=== PATIENT | female | born 1995 | race African-American/Black ===

== ENCOUNTER 2018-09-09 15:07 | Emergency (ER) | payer OTHER ==
[~2018-09-09] VITALS: Ht 160 cm; Wt 58.6 kg
[2018-09-09 15:08] VITALS: BP 152/70
[2018-09-09] MEDS ORDERED: ONDA4TAB6 PO (16:03)
== END 2018-09-09 16:07 | disposition home or self-care (01) ==
LOC: M ED 15:07
DX: N93.8 Other specified abnormal uterine and vaginal bleeding (principal); R11.2 Nausea with vomiting, unspecified; Z87.891 Personal history of nicotine dependence

== ENCOUNTER 2018-10-13 11:02 | Emergency (ER) | payer OTHER ==
[~2018-10-13] VITALS: Ht 157.5 cm; Wt 59.3 kg
[2018-10-13 11:02] VITALS: BP 127/78
[~2018-10-13 11:02] MED LIST: ONDA4TAB6 PO
[2018-10-13] MEDS ORDERED: IBUP-1022 PO (13:52)
[2018-10-13] MEDS ORDERED: CYCL10TA PO (13:52)
== END 2018-10-13 13:58 | disposition home or self-care (01) ==
LOC: M ED 11:02
DX: S39.012A Strain of muscle, fascia and tendon of lower back, initial encounter (principal); S29.012A Strain of muscle and tendon of back wall of thorax, initial encounter; X50.0XXA Overexertion from strenuous movement or load, initial encounter; Y92.099 Unspecified place in other non-institutional residence as the place of occurrence of the external cause; Y93.9 Activity, unspecified; Y99.9 Unspecified external cause status; Z72.0 Tobacco use

== ENCOUNTER 2020-01-17 09:20 | Day surgery (SDC) | payer OTHER ==
[~2020-01-17 09:20] MED LIST changes: +CYCL-707 PO; +IBUP-1022 PO; +cefoTEtan INJ 2GM VIAL (S0074 PER 500MG) As Ordered ONE
[2020-01-17] MEDS ORDERED: cefoTEtan INJ 2GM VIAL (S0074 PER 500MG) ONE (09:21)
[2020-01-17] MEDS ORDERED: LIDOCAINE 1% MDV 20ML VIAL ONE (09:21)
[2020-01-17] MEDS ORDERED: LIDOCAINE 1% MDV 20ML VIAL As Ordered ONE (09:40)
[2020-01-17] MEDS ORDERED: FLUORESCEIN 10% (100MG/ML) 5 ML VIAL As Ordered ONE (11:25)
[2020-01-17] MEDS ORDERED: BUPIVACAINE HCL 0.25% 10ML VIAL As Ordered ONE (11:25)
[2020-01-17] MEDS ORDERED: METHYLENE BLUE 0.5% (5MG/ML) 10 ML AMP (PROVAYBLUE) As Ordered ONE (11:25)
[2020-01-17] MEDS ORDERED: ACETAMINOPHEN 650 MG SUPP As Ordered ONE (12:11)
[2020-01-17] MEDS ORDERED: ONDANSETRON 4MG/2ML VIAL As Ordered ONE (12:12)
[2020-01-17] MEDS ORDERED: fentaNYL 100 MCG/2 ML INJECTION (J3010) As Ordered ONE (12:12)
[2020-01-17] MEDS ORDERED: MIDAZOLAM INJ 2MG/2ML VIAL (J2250 PER 1MG) As Ordered ONE (12:12)
[2020-01-17] MEDS ORDERED: propofoL 200 MG/20 ML VIAL As Ordered ONE (12:12)
[2020-01-17] MEDS ORDERED: dexameTHASONE 4 MG/ML 1ML VIAL (J1100 PER 1MG) As Ordered ONE (12:12)
[2020-01-17] MEDS ORDERED: ROCURONIUM BROMIDE 50 MG/5 ML VIAL As Ordered ONE (12:12)
[2020-01-17] MEDS ORDERED: LIDOCAINE 2% 100MG/5ML SDV (FOR ANES.) As Ordered ONE (12:12)
[2020-01-17] MEDS ORDERED: ACETAMINOPHEN 1000MG 100ML IV BTL (OFIRMEV) (J0131 PER 10MG) As Ordered ONE (12:32)
[2020-01-17] MEDS ORDERED: KETOROLAC 60MG 2ML VIAL As Ordered ONE (12:38)
[2020-01-17] MEDS ORDERED: SUGAMMADEX SODIUM 500 MG/5 ML VIAL (BRIDION) As Ordered ONE (12:38)
[2020-01-17] MEDS ORDERED: oxyCODONE 5MG TAB ONE ×2 (13:47→14:30)
[2020-01-17] MEDS ORDERED: oxyCODONE 5MG TAB As Ordered ONE ×2 (13:47→14:30)
[2020-02-04 20:24] LABS: BLOOD UREA NITROGEN 17 MG/DL (7-18); CALCIUM LEVEL 9.2 MG/DL (8.5-10.1); CARBON DIOXIDE LEVEL 28 MEQ/L (21-32); CHLORIDE LEVEL 109 MEQ/L (98-107); CREATININE FOR GFR 0.86 MG/DL (0.55-1.30); GLOMERULAR FILTRATION RATE > 60.0 (>60); GLUCOSE, FASTING 79 MG/DL (70-100); HCG, SERUM QUANTITATIVE < 1.0 MIU/ML; SODIUM LEVEL 140 MEQ/L (136-145)
[2020-02-14 10:42] LABS: HEMATOCRIT 41.8 % (36.0-47.0); MEAN CORPUSCULAR HEMOGLOBIN 31.6 pg (27.0-33.0); MEAN CORPUSCULAR HGB CONC 31.1 g/dl (32.0-36.5); MEAN CORPUSCULAR VOLUME 101.5 fl (80.0-96.0); PLATELET COUNT, AUTOMATED 296 10^3/uL (150-450); RED BLOOD COUNT 4.12 10^6/uL (4.00-5.40); WHITE BLOOD COUNT 4.9 10^3/uL (4.0-10.0)
--- NOTE | 2020-03-08 11:01 | RO ---
DATE OF OPERATION: 01/17/2020 PREOPERATIVE DIAGNOSIS: Left lower quadrant pain. POSTOPERATIVE DIAGNOSIS: Left lower quadrant pain, adhesions, and constipation. OPERATION PROPOSED: Diagnostic laparoscopy/operative laparoscopy, release of adhesions, and chromotubation. ANESTHESIA: General plus local anesthetic for intraperitoneal procedures. ESTIMATED BLOOD LOSS: Less than 1 mL. SURGEON: Dr. Hussein After adequate time-out, Ramos catheter in the bladder draining clear urine, acetaminophen suppository 1300 mg per rectum. Sequentials in place. Weighed speculum in the vagina. Single-toothed tenaculum on the anterior lip of the cervix. No significant prolapse. Sounded to depth of 9 cm. Uterine elevator was placed into the cervical canal in order to dilate enough to put the dye insufflator in place. Re-prepping and draping. Small subumbilical incision was made. Veress needle was applied. There was 3.8 liters of CO2 at a flow of 14 to pressure of 15. Direct entry into the abdomen under direct vision. No evidence of hemorrhage, perforation, or bleeding. Panoramic review. Right upper quadrant was normal. Stomach was flattened and deflated. Left upper quadrant was normal. Right and left round ligaments were normal. Anterior and posterior cul-de-sacs were clear. On the right side there was a normal ovary. We could find also the ureter moving. Patient had a large cecum filled with feces, and almost all of the colon was filled with feces, indicating extensive constipation. On the left side, the ovary and tube appeared to be normal, but there were some adhesions in the mid section where the tube was. With a 5 mm port on either side, we cut the down the adhesions by blunt and sharp dissection, releasing the tube on the left side. This may be the etiology behind her pain or her significant constipation. With that done, we chromotubated the tubes. They filled both to the fimbriated end, and they spilled equally easily on either side, indicating patency. With that done, instrument and pad count correct, the abdomen was deflated to 4 mm pressure. The two ports, lower end, were removed. The mainstem port was removed. Deep stitch in the subumbilical area. Cutaneous stitches to all three sites. Marcaine 0.25% 10 mL spread between the three sites. Steri-Strips were applied. Going down below, we removed the dye insufflator. We evaluated the endometrial cavity. Sampling was done. Very thinned area of tissue. No significant pathology was noted. Then the Ramos catheter was removed. Uterus was placed in anatomical position, and the patient was sent back to recovery in good condition. [facility]ENTER[facility]ette
== END 2020-01-17 15:10 | disposition home or self-care (01) ==
LOC: M SDC 09:20
PROVIDERS: ATTEND Obstetrics & Gynecology
DX: K66.0 Peritoneal adhesions (postprocedural) (postinfection) (principal); K59.00 Constipation, unspecified; F17.218 Nicotine dependence, cigarettes, with other nicotine-induced disorders
CPT/HCPCS: 36415; 58350; 58660; 80048; 84702; 85027; J0131; J1100; J1885; J2250; J2405; J3010; Q9968

== ENCOUNTER 2020-02-22 12:31 | Emergency (ER) | payer OTHER ==
[~2020-02-22] VITALS: Ht 160 cm; Wt 59.1 kg
[~2020-02-22 12:31] MED LIST changes: -cefoTEtan INJ 2GM VIAL (S0074 PER 500MG) As Ordered ONE
[2020-02-22] MEDS ORDERED: KETO10TAB PO (14:24)
[2020-02-22 14:39] VITALS: BP 112/68
--- NOTE | 2020-03-01 11:42 | REP ---
LEFT SHOULDER SERIES: 3-VIEWS HISTORY: Pain after lifting. FINDINGS: Three views of the left shoulder demonstrate normal alignment of the glenohumeral and acromioclavicular joints. The periarticular soft tissues are unremarkable. No fracture or subluxation is seen. IMPRESSION: Negative left shoulder radiographs. MTDD
== END 2020-02-22 14:38 | disposition home or self-care (01) ==
LOC: M ED 12:31
DX: S46.012A Strain of muscle(s) and tendon(s) of the rotator cuff of left shoulder, initial encounter (principal); X50.0XXA Overexertion from strenuous movement or load, initial encounter; Y92.89 Other specified places as the place of occurrence of the external cause; Y93.89 Activity, other specified; Y99.9 Unspecified external cause status